=== PATIENT | female | born 1975 | race Caucasian/White ===

== ENCOUNTER 2023-08-06 12:53 | Outpatient (AMB) | payer OTHER, SELFPAY ==
--- NOTE | 2023-08-06 13:00 | A.SPINEOV_ITS ---
Intake Intake Visit Reasons: cervical stenosis Intake Note: Ms. Alexandre is here today c/o neck pain radiating into head and down both arms. MRI done @ [facility]/brought disc. Civil Engineering Director Required: No Assessment & Plan Assessment & Plan (1) Degenerative disc disease, cervical: Code(s): M50.30 - Other cervical disc degeneration, unspecified cervical region (2) Chronic neck pain: Code(s): M54.2 - Cervicalgia; G89.29 - Other chronic pain (3) Tension headache: Code(s): G44.209 - Tension-type headache, unspecified, not intractable Plan Dear colleague Thank you for referring Marilyn Alexandre to the office today with a chief complaint of neck pain. HPI: This 48-year-old female suffering from chronic neck pain that is located in her occiput and radiates to the front of her head. She has been undergoing the following treatments: Physical therapy, injections and muscle relaxants. An MRI of the cervical spine was ordered during the course of her treatment, which showed multilevel degenerative disc disease and spinal stenosis at C3-C4. She visited a neurosurgeon at [facility] who offered her a 4 level anterior diskectomy and fusion. She sees me for 2nd opinion. Again, the main symptom is neck pain. She does have intermittent bilateral arm pain that radiates down her hands. She also has pain in her hands. She denies dexterity loss or numbness. No weakness. 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 No symptoms in the lower extremities. Extensive lab work showed a positive RAMIRO for which she will be evaluated by a director card. PMH: Migraines, hypertension, carpal tunnel release, cholecystectomy and C- section Medications: Hydrochlorothiazide, nabumetone, vitamin-D, loratadine, gabapentin, amitriptyline, Allergies: Allergies to Vicodin and codeine Social history: . Four children. Employed. Physical Exam: Pleasant female in not acute distress. She is able to move her neck in all directions without difficulties. Ambulates normally. No cranial nerve deficits. No motor deficits. Sensory exam is intact. She has symmetric reflexes. She does have an Harpreet reflex on the left side. No ankle clonus. Radiological Studies: MRI done at [facility] on 02/12/2023 shows multilevel degenerative disc disease with a disc osteophyte at C3-C4 causing central spinal cord deformation. There is foraminal stenosis of C5 and C6 on the right side. Impression/Plan: This 48-year-old female is suffering primarily from chronic neck pain and tension headaches. Clinically, she has no myelopathy with the exception of a left Harpreet reflex. I would like to reassess her in 6 months. The only possible surgery that may be required is a C3-C4 anterior diskectomy and fusion if she becomes symptomatic from the spinal stenosis. Thank you for allowing me to participate in your patients care. total time spent was 50 minutes in counseling ,coordination of plan, personal review of imaging, surgical decision making and subsequent plan Mervin Butt MD, PhD Spine Fellowship Trained Neurosurgeon Director, [facility] [place] [facility] Coding Level of Care Code New Pt Level 4 (79828) Diagnoses Degenerative disc disease, cervical M50.30 Chronic neck pain M54.2; G89.29 Tension headache G44.209
== END 2023-08-06 13:34 | disposition home or self-care (01) ==
PROVIDERS: PCP Physician Assistant Medical; Visit Provider Neurological Surgery
DX: M50.30 Other cervical disc degeneration, unspecified cervical region (principal); G89.29 Other chronic pain; G44.209 Tension-type headache, unspecified, not intractable
CPT/HCPCS: 99204

== ENCOUNTER → 2023-08-06 12:53 | Outpatient (BNVA) | payer OTHER, SELFPAY | PROVIDERS: PCP Physician Assistant Medical; Visit Provider Neurological Surgery | DX: M50.30 Other cervical disc degeneration, unspecified cervical region (principal); G44.209 Tension-type headache, unspecified, not intractable; G89.29 Other chronic pain | CPT/HCPCS: 99202 ==

== ENCOUNTER 2024-02-25 15:49 | Outpatient (AMB) | payer OTHER, SELFPAY ==
--- NOTE | 2024-02-25 15:51 | A.SPINEOV_ITS ---
Intake Visit Reasons: 6 month f/up/cervical stenosis Intake Note: Ms. Alexandre is here today for a 6month f/u. 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 This 48-year-old female suffering from chronic neck pain with tension headaches. Intermittently she has right upper arm pain with numbness and tingling. The left side is mostly unaffected. The MRI of the cervical spine shows multilevel spinal stenosis predominantly at C3-C4 and moderate right-sided foraminal stenos is at C4, C5 and C6. Today's exam is benign. In other words there are no motor sensory deficits or reflex abnormalities. No clonus. No pathological reflexes. Gait is undisturbed. I an extensive discussion with the patient again about treatment options. She remains asymptomatic on neurological exam and therefore I have a hard time justifying performing surgery on her, while I can not give her any guarantee that her neck pain will improve. I am waiting for his symptom with will pointed in 1 direction. My preference would be an artificial disc if it comes to surgery. She will follow up with me in 6 months or earlier if progressive neurological symptoms develop. I spent 30 minutes in his consult to review imaging and to discuss plan of care. Mervin Butt MD, PhD Spine Fellowship Trained Neurosurgeon Director, [facility] [place] [facility] Coding Level of Care Code Est Pt Level 4 (89755) Diagnoses Degenerative disc disease, cervical M50.30 Chronic neck pain M54.2; G89.29
== END 2024-02-25 16:11 | disposition home or self-care (01) ==
PROVIDERS: PCP Physician Assistant Medical; Visit Provider Neurological Surgery
DX: M50.30 Other cervical disc degeneration, unspecified cervical region (principal); M54.2 Cervicalgia; G89.29 Other chronic pain
CPT/HCPCS: 99214

== ENCOUNTER → 2024-02-25 15:49 | Outpatient (BNVA) | payer OTHER, SELFPAY | PROVIDERS: PCP Physician Assistant Medical; Visit Provider Neurological Surgery | DX: M50.30 Other cervical disc degeneration, unspecified cervical region (principal); M54.2 Cervicalgia; G89.29 Other chronic pain | CPT/HCPCS: 99212 ==

== ENCOUNTER 2024-09-04 11:24 | Outpatient (AMB) | payer OTHER, SELFPAY ==
--- NOTE | 2024-09-04 11:46 | HO.SPINEOV ---
Vital Signs 09/04/24 11:47 Height 5 ft Weight 152 lb BMI 29.7 Intake Visit Reasons: 6 month f/up/cervical stenosis Intake Note: Ms. Alexandre is here today for her 6month F/u. Chamber Walker Required: No Allergies No Known Allergies Allergy (Verified 09/04/24 11:48) Physical Exam Vital Signs: BMI result Body Mass Index 29.7 Assessment & Plan Assessment & Plan (1) Degenerative disc disease, cervical: Code(s): M50.30 - Other cervical disc degeneration, unspecified cervical region Category: Medical (2) Chronic neck pain: Code(s): M54.2 - Cervicalgia; G89.29 - Other chronic pain Category: Medical Plan Dear colleague, On 09/04/2024 I saw for follow-up Marilyn Alexandre. As you know she suffering from severe headaches and neck pain. In addition she has bilateral hand numbness. She was offered a 4 level fusion at [facility] and came to see me for 2nd opinion. We discussed again an artificial disc at C3-C4 to treat the headaches and neck pain. She has no symptoms of spinal cord compression. She does have positive findings for a carpal tunnel syndrome bilaterally. We will 1st repeat the MRI of the cervical spine as this 1 is more than a year old to make sure that the central disc herniation is still present at C3-C4. We will then discuss an artificial disc procedure. I spent 20 minutes in his consult for physical exam and answering questions. Thank you for allowing me take care of the patient. Mervin Butt MD, PhD Spine Fellowship Trained Neurosurgeon Director, [facility] [place] [facility] Orders: Orders MR cervical spine wo con Today G89.29 - Other chronic pain, M50.30 - Other cervical disc degeneration, unspecified cervical region, M54.2 - Cervicalgia Coding Level of Care Code Est Pt Level 3 (43614) Diagnoses Degenerative disc disease, cervical M50.30 Chronic neck pain M54.2; G89.29
[2024-09-04 11:47] VITALS: BMI 29.7
== END 2024-09-04 12:12 | disposition home or self-care (01) ==
PROVIDERS: PCP Physician Assistant Medical; Visit Provider Neurological Surgery
DX: M50.30 Other cervical disc degeneration, unspecified cervical region (principal); G89.29 Other chronic pain
CPT/HCPCS: 99213

== ENCOUNTER → 2024-09-04 11:24 | Outpatient (BNVA) | payer OTHER, SELFPAY | PROVIDERS: PCP Physician Assistant Medical; Visit Provider Neurological Surgery | DX: M50.30 Other cervical disc degeneration, unspecified cervical region (principal); G89.29 Other chronic pain | CPT/HCPCS: 99212 ==

== ENCOUNTER → 2024-09-10 18:53 | Outpatient (BNV) | payer OTHER, SELFPAY | PROVIDERS: PCP Physician Assistant Medical; Visit Provider Radiology Diagnostic Radiology | DX: M48.02 Spinal stenosis, cervical region (principal) | CPT/HCPCS: 72141 ==

== ENCOUNTER 2024-09-10 19:00 | Outpatient (REF) | payer OTHER, SELFPAY ==
--- NOTE | ~2024-09-10 | MR_ITS ---
EXAMINATION: MR CERVICAL SPINE WITHOUT IV CONTRAST History: M54.2 - Cervicalgia Technique: Sagittal T1, T2 and STIR, bilateral sagittal oblique T2, and axial T1, T2 and gradient echo images of the cervical spine were obtained per departmental protocol. Comparison: None available. Findings: The vertebral bodies maintain normal height, alignment, and marrow signal intensity. There is mild degenerative disc disease with disc desiccation. At C2-3, there is no evidence of disc herniation, central spinal stenosis, or neural foraminal narrowing. At C3-4, there is a posterior disc/osteophyte complex which effaces the anterior subarachnoid space, causing severe central spinal stenosis. There is no neural foraminal narrowing. At C4-5, there is a posterior disc/osteophyte complex causing severe central spinal stenosis. There is right-sided uncovertebral joint hypertrophy causing neural foraminal narrowing. The left neural foramen is patent. At C5-6, there is a posterior disc/osteophyte complex causing moderate to severe central spinal stenosis. There is mild narrowing of the right neural foramen. The left neural foramen is patent. At C6-7, there is a posterior disc/osteophyte complex causing moderate to severe central spinal stenosis. The neural foramen are patent. At C7-T1, there is a mild central disc protrusion. There is no evidence of disc herniation, central spinal stenosis, or neural foraminal narrowing. The spinal cord demonstrates normal signal intensity. The visualized paraspinal soft tissues are unremarkable. MR/MR cervical spine wo con Impression: Mild degenerative disc disease. Posterior disc/osteophyte complexes causing severe central spinal stenosis at C3-4 and C4-5, and moderate to severe central spinal stenosis at C5-6 and C6-7. Electronically signed by: Samuel Maurice MD 09/11/2024 09:33 AM EST
== END 2024-09-10 19:01 | disposition home or self-care (01) ==
LOC: HO.MRI 19:00
PROVIDERS: PCP Physician Assistant Medical; Visit Provider Neurological Surgery
DX: M50.30 Other cervical disc degeneration, unspecified cervical region (principal); G89.29 Other chronic pain
CPT/HCPCS: 72141

== ENCOUNTER 2024-10-09 13:35 | Outpatient (AMB) | payer OTHER, SELFPAY ==
--- NOTE | 2024-10-09 13:48 | A.SPINEOV_ITS ---
Intake Visit Reasons: Discuss surgery Intake Note: Ms. Alexandre is here today to Discuss Surgery. 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 She scheduled to undergo a total disc replacement C3-C4 for chronic neck pain. She had several questions about the surgery possible complication expected postoperative course which were all answered satisfactorily. I spent 15 minutes in his consult. Surgery scheduled for December 02. Coding Level of Care Code Est Pt Level 2 (20085) Diagnoses Chronic neck pain M54.2; G89.29 Degenerative disc disease, cervical M50.30
== END 2024-10-09 14:23 | disposition home or self-care (01) ==
PROVIDERS: PCP Physician Assistant Medical; Visit Provider Neurological Surgery
DX: M50.30 Other cervical disc degeneration, unspecified cervical region (principal); G89.29 Other chronic pain
CPT/HCPCS: 99212

== ENCOUNTER → 2024-10-09 13:35 | Outpatient (BNVA) | payer OTHER, SELFPAY | PROVIDERS: PCP Physician Assistant Medical; Visit Provider Neurological Surgery | DX: M50.30 Other cervical disc degeneration, unspecified cervical region (principal); G89.29 Other chronic pain | CPT/HCPCS: 99212 ==

== ENCOUNTER 2024-12-16 06:06 | Day surgery (SDC) | payer OTHER, SELFPAY ==
[2024-11-19 10:52] VITALS: BMI 27.3
--- NOTE | 2024-12-15 09:32 | HO.ANESPROP2 ---
Documented by User: Jigna Campo NP 12/15/24 09:33 HPI - Anesthesia Eval Consult details Narrative: 49yo F for C3-4 Cervical Disc Arthroplasty Anesthesia Pre-Procedure Meds Is the patient on any of the following meds?: GLP1/DPP4 PMFSH Active Problems Active Problems: All Active Problems Tension headache (Acute) Chronic neck pain (Acute) Degenerative disc disease, cervical (Acute) Past Medical History Medical History (Updated 11/19/24 @ 10:52 by Deb Ellis RN) Weight loss Meningitis spinal Cervical radiculitis Anxiety Migraines HTN (hypertension) Surgical History Surgical History (Updated 11/19/24 @ 10:50 by Deb Ellis RN) Hx of section Hx of cholecystectomy History of carpal tunnel release Social History Social History Are you a primary director career services to a significant other at home: No Do you presently have visiting nurse or other home services: No Patient Tobacco Use Status: Never used Tobacco Use of substances other than those prescribed or required for medical reasons: No Spiritual Healthcare Practices: no Orthodoxy Healthcare Practices: no Cultural Healthcare Practices: no Are you DNR?: No Advance Directives: No Advance Directives Information Provided: Yes Advance Directives on File: No Patient : No (irreg.menses) FDLMP: 11/09/24 : No Poor oral hygiene: No Meds Allergies Allergy/AdvReac Type Severity Reaction Status Date / Time codeine Allergy Intermediate Nausea and Verified 11/19/24 10:42 Vomiting hydrocodone Allergy Intermediate Nausea and Verified 11/19/24 10:42 Vomiting Home Medications ?Medication ?Instructions ?Recorded ?Confirmed ?Last Taken ?Type amlodipine 10 mg tablet 10 mg PO BEDTIME 11/18/24 11/19/24 Unknown History cholecalciferol (vitamin D3) 125 125 mcg PO QAM 11/18/24 11/19/24 Unknown History mcg (5,000 unit) tablet (Vitamin D3) cyclobenzaprine 10 mg tablet 10 mg PO BEDTIME PRN muscle pain 11/18/24 11/19/24 Unknown History fluticasone propionate 50 1 spray intranasal BID 11/18/24 11/19/24 Unknown History mcg/actuation nasal spray,suspension gabapentin 600 mg tablet 600 mg PO DAILY PRN Pain 11/18/24 11/19/24 Unknown History hydrochlorothiazide 25 mg tablet 25 mg PO QAM 11/18/24 11/19/24 Unknown History loratadine 10 mg tablet 10 mg PO QAM allergies 11/18/24 11/19/24 Unknown History nabumetone 750 mg tablet 750 mg PO BID 11/18/24 12/16/24 12/08/24 History hydroxyzine pamoate 25 mg capsule 25 mg PO TID PRN Anxiety 11/19/24 11/19/24 Unknown History tirzepatide (weight loss) 12.5 12.5 mg subcut QWEEK 11/19/24 12/16/24 12/08/24 History mg/0.5 mL subcutaneous pen injector (Zepbound) Exam Height,Weight and Vital Signs: Height 5 ft Weight 63.503 kg Pertinent Lab Results Pertinent Lab Results: [facility] CBC and BMP 10/2024 WNL Assessment and Plan Assessment Anesthesia Assessment: Chart Reviewed Documented by User: Kristen Shook MD 12/16/24 07:17 PMFSH Past Medical History Medical History (Updated 11/19/24 @ 10:52 by Deb Ellis RN) Weight loss Meningitis spinal Cervical radiculitis Anxiety Migraines HTN (hypertension) Family History Family history of problems with anesthesia: No Surgical History Surgical History (Updated 11/19/24 @ 10:50 by Deb Ellis RN) Hx of section Hx of cholecystectomy History of carpal tunnel release History of Problems with Anesthesia: No Social History Social History Are you a primary director career services to a significant other at home: No Do you presently have visiting nurse or other home services: No Patient Tobacco Use Status: Never used Tobacco Use of substances other than those prescribed or required for medical reasons: No Spiritual Healthcare Practices: no Orthodoxy Healthcare Practices: no Cultural Healthcare Practices: no Are you DNR?: No Advance Directives: No Advance Directives Information Provided: Yes Advance Directives on File: No Patient : No (irreg.menses) FDLMP: 11/09/24 : No Poor oral hygiene: No Meds Allergies Allergy/AdvReac Type Severity Reaction Status Date / Time codeine Allergy Intermediate Nausea and Verified 11/19/24 10:42 Vomiting hydrocodone Allergy Intermediate Nausea and Verified 11/19/24 10:42 Vomiting Home Medications ?Medication ?Instructions ?Recorded ?Confirmed ?Last Taken ?Type amlodipine 10 mg tablet 10 mg PO BEDTIME 11/18/24 11/19/24 Unknown History cholecalciferol (vitamin D3) 125 125 mcg PO QAM 11/18/24 11/19/24 Unknown History mcg (5,000 unit) tablet (Vitamin D3) cyclobenzaprine 10 mg tablet 10 mg PO BEDTIME PRN muscle pain 11/18/24 11/19/24 Unknown History fluticasone propionate 50 1 spray intranasal BID 11/18/24 11/19/24 Unknown History mcg/actuation nasal spray,suspension gabapentin 600 mg tablet 600 mg PO DAILY PRN Pain 11/18/24 11/19/24 Unknown History hydrochlorothiazide 25 mg tablet 25 mg PO QAM 11/18/24 11/19/24 Unknown History loratadine 10 mg tablet 10 mg PO QAM allergies 11/18/24 11/19/24 Unknown History nabumetone 750 mg tablet 750 mg PO BID 11/18/24 12/16/24 12/08/24 History hydroxyzine pamoate 25 mg capsule 25 mg PO TID PRN Anxiety 11/19/24 11/19/24 Unknown History tirzepatide (weight loss) 12.5 12.5 mg subcut QWEEK 11/19/24 12/16/24 12/08/24 History mg/0.5 mL subcutaneous pen injector (Zepbound) Exam Airway Mallampati Class: II TM Dist: >3cm Neck ROM: Full Loose/Missing/Broken Teeth: Yes, Upper and Lower Assessment and Plan Assessment Anesthesia Assessment: Anesthesia Plan Discussed Final Anesthetic Review Family History of Problems with Anesthesia: No History of Problems with Anesthesia: No NPO: Yes ASA Class: II Final Preanesthetic Review: No Changes in Pt Med Stat, Meds/Allgs Chart Reviewed, Consent Obtained/Reviewed and Anes Risks/Benef Reviewed Patient Risk: Low Procedure Risk: Intermediate Anesthetic Plan Anesthetic Plan: GA Disposition: Standard PACU
[2024-12-16] VITALS (14 sets, daily range): BP systolic 93–116; BP diastolic 58–71; PULSE 73–88; RESP 14–16; TEMP 36.2–36.6; O2SAT 96–100
--- NOTE | ~2024-12-16 | FL_ITS ---
EXAMINATION: FL GUIDANCE ONLY HISTORY: C3-4 ACDF COMPARISON: None available. TECHNIQUE: Fluoroscopy time: 14.6 seconds. Cumulative Dose: 0.7635 mGy. DAP: 0.2436 mGym2 Images: 2. FINDINGS: Images demonstrate anterior cervical disc fusion at C3-4. FL/FL guidance in OR IMPRESSION: Fluoroscopy during procedure. Please see procedure report for additional information. Electronically signed by: Samuel Maurice MD 12/16/2024 04:37 PM EDT
[2024-12-16] MEDS: methocarbamoL 750 MG TABLET PO (06:43)
[2024-12-16] MEDS: Gabapentin 300 MG CAPSULE PO (06:43)
[2024-12-16] MEDS: Lactated Ringers 1,000 ML 100 ML IVCONT (06:44)
[2024-12-16 06:46] LABS: UPreg QC Valid YES; Urine Pregnancy NEGATIVE (NEGATIVE)
--- NOTE | 2024-12-16 06:52 | MHC.SHP ---
Pre-Procedural Eval Section A - 24 Hr Update-Section A only Date of Service: 12/16/24 Section B - Complete if H&P > 30 days Chief Complaint: Other cervical disc degeneration,Cervicalgia Allergies: Allergies Allergy/AdvReac Type Severity Reaction Status Date / Time codeine Allergy Intermediate Nausea and Verified 11/19/24 10:42 Vomiting hydrocodone Allergy Intermediate Nausea and Verified 11/19/24 10:42 Vomiting Review of Systems Sugical H&P ROS: Negative: Constitution, Cardiovascular, Respiratory, Neurological, Psychiatric, Hem-Onc, Allergic/Immunologic, Gastrointestinal, Genitourinary, Musculoskeletal, Integumentary, Endocrine and Eyes/Ears/Nose/Throat Exam Surgical H&P Exam: Not Evaluated: HEENT, Not Evaluated: Heart, Not Evaluated: Lungs, Not Evaluated: Extremities, Not Evaluated: Abdomen, Not Evaluated: Skin and Not Evaluated: Neurological Exam Comment: THE PATIENT IS AWAKE, ALERT, NO ACUTE DISTRESS. PROPOSED SURGICAL INCISION SITE IS CLEAN, DRY, WITH NO SIGNS OF RECENT INJURY. Plan Diagnosis/Plan: Unchanged I have reviewed the history and physical and performed a pertinent physical examination on my patient. No changes have occurred unless specified. Plan remains the same, C3-4 total disc arthroplasty. Time Spent With Patient Time: Total time managing care of this patient today __14__ minutes.
[2024-12-16] MEDS: ceFAZolin Sodium/Dextrose,Iso 2 GM/50 ML PIGGYBACK IV (07:35)
[2024-12-16] MEDS: Acetaminophen 1,000 MG/100 ML PIGGYBACK 400 MG IV (07:46)
--- NOTE | 2024-12-16 09:03 | P.DS_ITS ---
DS: Providers Provider Date of Service: 12/16/24 Date of discharge: 12/16/24 Primary care physician: ANGELINE Michael DS: Summary Time Attestation Discharge Coordination Time (in mins): 12 Quality: Safe Use of Opioids Does Pt have an Active Cancer Diagnosis on the Problem List?: No Quality: Stroke Does the patient have a stroke diagnosis?: No Physical Exam Vital Signs: Vital Signs: Last Vital Signs Temp 97.8 F 12/16/24 06:36 Pulse 81 12/16/24 06:36 Resp 14 12/16/24 06:36 BP 107/71 12/16/24 06:36 Pulse Ox 98 12/16/24 06:36 O2 Del Method Room Air 12/16/24 06:36 BMI result Body Mass Index 27.3 DS: Data Data Completed and Pending Labs on day of discharge: Laboratory Results - last 24 hr 12/16/24 06:20 Urine Test NEGATIVE Discharge Plan Discharge Patient Disposition: Home, Self-Care Referrals: Christine Gutierrez PA [Primary Care Provider] - 1 Week Discharge Medications: New oxycodone 5 mg tablet 5 mg PO Q6H PRN (Reason: pain) Qty: 30 0RF Rx Instructions: Partial Fill upon patient request. Continued cyclobenzaprine 10 mg tablet 10 mg PO BEDTIME PRN (Reason: muscle pain) gabapentin 600 mg tablet 600 mg PO DAILY PRN (Reason: Pain) amlodipine 10 mg tablet 10 mg PO BEDTIME hydrochlorothiazide 25 mg tablet 25 mg PO QAM fluticasone propionate 50 mcg/actuation spray,suspension 1 spray intranasal BID loratadine 10 mg tablet 10 mg PO QAM cholecalciferol (vitamin D3) [Vitamin D3] 125 mcg (5,000 unit) Tablet 125 mcg PO QAM hydroxyzine pamoate 25 mg Capsule 25 mg PO TID PRN (Reason: Anxiety) Zepbound 12.5 mg/0.5 mL Pen Injector 12.5 mg SUBCUT QWEEK Rx Instructions: takes on Tuesdays Held nabumetone 750 mg tablet 750 mg PO BID Hold Instructions: Resume on 12/17/24. Discharge Orders: Discharge Order (Routine); Ordered 12/16/24 Ordered By: Carlos Floyd Diet: Advance to usual diet Activity on Discharge: As tolerated Activity Restrictions/Additional Instructions: After your spinal surgery we ask you to observe the following restrictions/guidelines: Activity: It is normal to feel some discomfort as you increase your activity, but that tho l improve with time. We ask you avoid heavy lifting or acitivities that cause pain. As a general rule, 8lbs is a safe limit for lifting right after surgery. Walk as much as you feel comfortable but not to exhaustion. You will feel extra tired the first few days after surgery. Stay well hydrated. It is OK to walk up and down stairs You may return to driving when you are off narcotics (such as vicodin, oxycodone, dilaudid, etc), and you are back to normal functional capacity. If you have any concerns please check with office before driving. Return to work is specific to each patient and each surgery, so please speak with your doctor/PA at first follow up. Please bring paperwork such as FMLA at that time if you need it filled out. Medications: We recommend you take 1,000mg Tylenol every 8 hours for the first few weeks after surgery, if you do not have any liver issues and can tolerate this medication. Do not exceed 4,000mg daily. We will give you a short supply of narcotics after surgery (usually one weeks worth). If you need more please call the office but do not use more than prescribed. You will need to give our office 48 hours notice if you need narcotics refilled and we do not fill narcotics on weekends or evenings. If you are on a narcotic, it is a good idea to take a stool softener such as colace or senna to avoid constipation If you take blood thinner such as aspirin, Plavix, Coumadin, Effient, Eliquis etc for conditions such as Afib, DVT, Pulmonary embolus, coronary disease, stents etc please speak with your surgeon about specific details as to when you can resume these medications. You can resume NSAIDs on post op day 1 (eg: Motrin, Naproxen, etc). Follow up: Please call the office, , after surgery to arrange a 3 week follow up for wound check. Wound Care: You may remove your dressing on the first day after surgery. ?You may ?leave open to air. Please do not remove the steri strips underneath. they will fall off on their own in one week. IT IS NORMAL FOR THE WOUND TO OOZE OR BE BLOODY FOR A FEW DAYS AFTER SURGERY. ?IF THIS HAPPENS JUST PLACE NEW DRESSING OVER IT TO AVOID STAINING CLOTHES. You may shower on post op day # 1 We ask that you do not let the water soak the wound. If it does get wet, just to wel dry lightly. Please do not scrub your incision or place any type of chemical/ointment on the wound. No tub baths, pools or jacuzzis for one month. If you have any leaking or redness from your wound, or fevers, please call the office. Print Language: [place]
--- NOTE | 2024-12-16 09:03 | W.PM.OPN ---
Operative Note Operative Note Date of Service: 12/16/24 Narrative: Preoperative Diagnosis: Neck pain; cervical degenerative disc disease Procedure : C3-C4 total disc arthropathy Informed Consent was obtained for this operation. I have explained the nature, purpose and benefits of the operation. I have discussed the risks and benefit of the operation including possible complications or adverse events with patient/family. Alternative(s) were discussed with the patient with their relative benefits and risks as well as the consequences of not accepting the operation were included in obtaining consent. Surgeon: CASA BRIAN MD, PHD Procedure Assisted By: ANGELINE Oneal Description of Procedure: This 49-year-old female was offered a 4 level anterior diskectomy and fusion another institution. She came to see me for a 2nd opinion. I decided on a C3-C4 total disc arthropathy after carefully review of the imaging available. The C3-4 level is the only level that showed central disc herniation compressing the spinal cord. The patient was offered a total disc arthropathy The procedure complications were explained. The patient was consented. The patient was brought to the operating room and endotracheally intubated. The patient was put in supine position with slight extension of the neck. Prep and drape was done followed by timeout. A mid cervical incision was made followed by opening of the platysma. The prevertebral fascia was reached following the natural planes while the physician assistant education director provided manual retraction. The prevertebral fascia was opened to expose the disc space. A spinal needle was placed in the disk space to confirm the correct level with xray. The longus colli muscles were released bilaterally and a self retaining retractor was inserted. Two Viola pins were placed in the C3 and C4 vertebral bodies parallel to the endplates and distraction was give over the interspace. The discectomy was completed toward the posterior annulus of the disc. The microscope was brought in. The remainder of the discectomy was completed. The posterior ligament was opened and resected to expose the underlying dura. Bilateral foraminotomies were done. A trial implant was inserted to determine the correct implant size is. Then an artificial disc of sentinel spine of 15 x 12 and 5 mm height was inserted under fluoroscopic guidance. Final x-rays in AP and lateral projection showed a satisfactory position of the implant. The physician assistant education director took over. The Viola pin was removed. Hemostasis was done. He closed the incision in 2 layers with a 3-0 Vicryl. Steri-Strips used to approximate incision. An OpSite with Tegaderm was used to cover the incision. All sponge and needle counts were correct. Patient was extubated and transported in stable is to recovery room. Anesthesia: General Estimated Blood Loss (ml): 25 Duration of Surgery: 60 minutes Postoperative Plan: Discharge home Complications: None
[2024-12-16] MEDS: oxyCODONE HCl Immed Release 5 MG TABLET PO (10:47)
[2024-12-16] MEDS: ondansetron HCL 4 MG/2 ML VIAL IVPUSH (11:34)
== END 2024-12-16 12:39 | disposition home or self-care (01) ==
PROVIDERS: Nurse Practitioner; PCP Physician Assistant Medical; Visit Provider Neurological Surgery
PROC: (CPT 22856; principal; 2024-12-16 07:30)
DX: M50.31 Other cervical disc degeneration, high cervical region (principal); G89.29 Other chronic pain
CPT/HCPCS: 22856; 81025; C1776; J0131; J0690; J1100; J2003; J2371; J2405; J2704; J3010

== ENCOUNTER → 2024-12-16 06:06 | Outpatient (BNV) | payer OTHER, SELFPAY | PROVIDERS: PCP Physician Assistant Medical; Visit Provider Neurological Surgery | DX: M50.31 Other cervical disc degeneration, high cervical region (principal) | CPT/HCPCS: 22856; 99499 ==

== ENCOUNTER 2025-01-06 13:19 | Outpatient (AMB) | payer OTHER, SELFPAY ==
--- NOTE | 2025-01-06 13:25 | A.SPINEOV_ITS ---
Intake Visit Reasons: 1st post op Intake Note: Ms. Alexandre is here today for her 1st post op. Integrity Manager Required: No Allergies codeine Allergy (Intermediate, Verified 11/19/24 10:42) Nausea and Vomiting hydrocodone Allergy (Intermediate, Verified 11/19/24 10:42) Nausea and Vomiting Assessment & Plan Assessment & Plan (1) H/O cervical spine surgery: Code(s): Z98.890 - Other specified postprocedural states Category: Surgical Plan Procedure : C3-C4 total disc arthropathy Marilyn is a pleasant 49-year-old female who comes in today after having c3-4 [address] completed [address] Dr[address] Butt a few weeks ago. She reports that overall her symptoms seem to have improved in regards to pain since her surgery. Unfortunately she has had quite a bit of swelling in her neck since the surgery, causing her to have some difficulties with swallowing. Given this, she is still able to tolerate a regular diet. She also reports that she continues to have some posterior neck pain, but does not have any shooting pains into her bilateral upper extremities. She is no longer taking her oxycodone as she does not like the way that it makes her feel. Therefore she has been utilizing [id number] medications for pain. No new neurological deficits. The patient ambulates well and rises from a seated position without difficulty. Her anterior incision site is closed and well healing. I believe that Marilyn is most likely suffering from some postoperative inflammation. 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 I encouraged her to call the office and update us on how she feels in the coming weeks. If we need to extend her leave for complete more [facility] paperwork for her we can. It does not sound like they have light duty at her work. I would like her to follow up with us again in 6 weeks with a set of x-rays. Carlos Butt MD,PhD [facility] Coding Level of Care Code Global (21853) Diagnoses H/O cervical spine surgery Z98.890
== END 2025-01-06 14:30 | disposition home or self-care (01) ==
LOC: HO.HNS 13:19
PROVIDERS: PCP Physician Assistant Medical; Visit Provider Physician Assistant
DX: Z98.890 Other specified postprocedural states (principal)
CPT/HCPCS: 99024

== ENCOUNTER → 2025-01-06 13:19 | Outpatient (BNVA) | payer OTHER, SELFPAY | PROVIDERS: PCP Physician Assistant Medical; Visit Provider Physician Assistant | DX: Z48.89 Encounter for other specified surgical aftercare (principal); Z98.890 Other specified postprocedural states | CPT/HCPCS: 99212 ==

== ENCOUNTER 2025-02-17 06:31 | Outpatient (REF) | payer OTHER, SELFPAY ==
--- NOTE | ~2025-02-17 | XR_ITS ---
EXAMINATION: XR CERVICAL SPINE CLINICAL INFORMATION: Z98.890 - Other specified postprocedural states COMPARISON: None available. TECHNIQUE: AP, and lateral: Flexion, neutral, and extension view x-rays of the cervical spine. FINDINGS: There is no prevertebral soft tissue edema. Prosthetic disc is present at C3-4. With flexion and extension, there is no instability. There is mild disc space narrowing between C4-5 and C7-T1 with small anterior osteophytes. XR/XR cervical spine 4V IMPRESSION: C3-4 disc replacement. Mild degenerative disc disease C4-5 through C7-T1 Electronically signed by: Chele Vaca MD 02/17/2025 05:56 PM EDT
== END 2025-02-17 06:32 | disposition home or self-care (01) ==
LOC: HO.HOSX 06:31
PROVIDERS: Visit Provider Physician Assistant
DX: Z98.890 Other specified postprocedural states (principal)
CPT/HCPCS: 72050; 99212

== ENCOUNTER 2025-02-17 13:20 | Outpatient (AMB) | payer OTHER, SELFPAY ==
--- NOTE | 2025-02-17 13:51 | HO.SPINEOV ---
Intake Visit Reasons: 2nd post op with Xray Intake Note: Ms. Alexandre is here today for her 2nd post op with x-rays. Director [employer] Required: No Allergies codeine Allergy (Intermediate, Verified 02/17/25 13:52) Nausea and Vomiting hydrocodone Allergy (Intermediate, Verified 02/17/25 13:52) Nausea and Vomiting Assessment & Plan Assessment & Plan (1) H/O cervical spine surgery: Code(s): Z98.890 - Other specified postprocedural states Category: Surgical Plan Procedure : C3-C4 total disc arthropathy Marilyn is a pleasant 49-year-old female comes in today for a 2nd postoperative visit after having C3-4 total disc arthroplasty completed by Dr. Butt 12/16/2024. She reports she has continued to do well since her surgery. She still has some posterior neck pain when 1st waking up in the morning, but states that she also sleeps on her stomach and knows that this causes her neck pain. She has attempted to utilize a cervical neck pillow to sleep on her back, but is unable to sleep this way. Overall, her symptoms have been much improved since her surgery. 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 I reviewed her cervical spine x-rays taken during this visit, which shows stable placement of the instrumentation with no changes from fluoroscopy. No new neurological deficits. The patient ambulates well and rises from a seated position without difficulty. Her anterior incision site is closed and well healed. There is no need for continued routine follow up with the patient, she may be discharged and follow up on an as-needed basis in the future. Carlos Butt MD,PhD [facility] Orders: Orders XR cervical spine 4V Today Z98.890 - Other specified postprocedural states Coding Level of Care Code Global (37712) Diagnoses H/O cervical spine surgery Z98.890
== END 2025-02-17 15:21 | disposition home or self-care (01) ==
LOC: HO.HNS 13:21
PROVIDERS: PCP Physician Assistant Medical; Visit Provider Physician Assistant
DX: Z98.890 Other specified postprocedural states (principal)
CPT/HCPCS: 99024

== ENCOUNTER → 2025-02-17 13:30 | Outpatient (BNV) | payer OTHER, SELFPAY | PROVIDERS: Visit Provider Radiology Diagnostic Radiology | DX: Z98.890 Other specified postprocedural states (principal) | CPT/HCPCS: 72050 ==